=== PATIENT | female | born 1990 | race Caucasian/White ===

== ENCOUNTER 2017-05-04 00:34 | Emergency (ER) | payer SELFPAY ==
[2017-05-04 01:21] VITALS: TEMP 96.7
[2017-05-04] MEDS ORDERED: IPRATROPIUM/ALBUTEROL 3 ML VIAL NEB ONE (02:01)
--- NOTE | 2017-05-04 02:04 | ED.PDOC ---
History of Present Illness - General Chief Complaint: Respiratory Problem Stated Complaint: cough congestion ear ache body aches x 2 days Time Seen by Provider: 05/04/17 01:40 Source: patient, RN notes reviewed, Vital Signs reviewed Exam Limitations: no limitations - History of Present Illness Comments: Patient presents to ER with 2 days of cough, congestion, LEE, sore throat and fever to 101. She has taken OTC cold medications and Ibuprofen which have helped. Timing/Duration: yesterday Cough Quality/Degree: moderate, productive cough Possible Cause: no prior episodes Improving Factors: medication Worsening Factors: nothing Associated Symptoms: cough, fever/chills, headache, muscle aches, nasal congestion, sore throat Allergies/Adverse Reactions: Allergies NO KNOWN ALLERGY Allergy (Verified 05/04/17 01:14) Home Medications: Ambulatory Orders Amoxicillin [Amoxil] 500 mg PO TID #30 cap 05/04/17 Review of Systems - Review of Systems Constitutional: States: fever, malaise EENTM: States: nose congestion, throat pain. Denies: ear pain Respiratory: States: cough. Denies: short of breath - but chest feels tight Cardiology: States: no symptoms reported Gastrointestinal/Abdominal: States: no symptoms reported Musculoskeletal: States: see HPI, muscle pain Skin: States: no symptoms reported Neurological: States: headache All other Systems: No Change from Baseline Past Medical History (General) - Patient Medical History Hx Seizures: No Hx Stroke: No Hx Dementia: No Hx Asthma: No Hx of COPD: No Hx Cardiac Disorders: No Hx Congestive Heart Failure: No Hx Pacemaker: No Hx Hypertension: Yes Hx Thyroid Disease: No Hx Diabetes: No Hx Gastroesophageal Reflux: Yes Hx Renal Disease: No Hx Cancer: No Hx of HIV: No Hx Hepatitis C: No Hx MRSA: No Surgical History: cholecystectomy - Vaccination History Hx Tetanus, Diphtheria Vaccination: Yes Hx Influenza Vaccination: No Hx Pneumococcal Vaccination: No - Social History Hx Tobacco Use: Yes Hx Alcohol Use: No Hx Substance Use: No Hx Substance Use Treatment: No Hx Depression: No - Female History Patient is a Female of Child Bearing Age (10 -59 yrs old): Yes Patient : No - Triage Comment ED Triage Comment: c/o runny nose--cough--congestion--body aches--ear aches x 2 days Family Medical History - Family History Mother Family History: Unknown Physical Exam - Physical Exam General Appearance: Alert, Comfortable, No apparent distress, Obese, Well Developed, Well Groomed, Well Hydrated, Well Nourished ENT Exam: hearing grossly normal, TMs normal, pharynx normal, nasal congestion Neck: non-tender, full range of motion, supple, normal inspection Respiratory: lungs clear, normal breath sounds, no respiratory distress, no accessory muscle use Cardiovascular/Chest: regular rate, rhythm, no gallop, no murmur Extremity: normal range of motion, normal inspection Neurologic: alert, normal mood/affect, oriented x 3 Skin Exam: normal color, warm/dry Comments: Vital Signs 05/04/17 01:15 Temperature 96.7 F L Pulse Rate [lt 88 arm] Respiratory 20 Rate Blood Pressure 143/86 [Lt arm] O2 Sat by Pulse 97 Oximetry Progress - EKG/XRAY/CT XRAY: chest - No acute pulmonary process per Radiologist Departure - Departure Clinical Impression: Bronchitis Time of Disposition: 03:10 Disposition: Discharge to Home or Self Care Condition: Good Departure Forms: ED Discharge - Pt. Copy, Patient Portal Self Enrollment Instructions: Acute Bronchitis Diet: resume usual diet Activity: increase activity as tolerated Prescriptions: Amoxicillin [Amoxil] 500 mg PO TID #30 cap Home Medications: Ambulatory Orders Amoxicillin [Amoxil] 500 mg PO TID #30 cap 05/04/17
--- NOTE | 2017-05-04 03:07 | RAD ---
EXAM DESCRIPTION: Chest,2 Views CLINICAL HISTORY: cough/fever/tighness COMPARISON: None. FINDINGS: Frontal and lateral views of the chest. The cardiomediastinal silhouette has normal size and contour. No consolidation, pneumothorax, or pleural effusion. No displaced rib fractures identified. Upper abdominal soft tissues are unremarkable. IMPRESSION: 1. No acute pulmonary process identified. Electronically signed by: Mike Aragon 05/04/2017 3:06 AM [facility]
[2017-05-04 03:18] VITALS: BP 156/84; O2SAT 99
== END 2017-05-04 03:17 | disposition home or self-care (01) ==
LOC: ER 00:34
DX: J40 Bronchitis, not specified as acute or chronic (principal); I10 Essential (primary) hypertension; K21.9 Gastro-esophageal reflux disease without esophagitis; Z87.891 Personal history of nicotine dependence
CPT/HCPCS: 71020; 94640; J7620